=== PATIENT | female | born 1950 | race Caucasian/White ===

== ENCOUNTER → 2023-09-28 11:02 | Outpatient (REF) | payer MEDICARE, OTHER, SELFPAY ==
[2023-09-28 11:39] LABS: % Basophils 1.7 % (0-2); % Eosinophils 7.9 % (0-6); % Immature Granulocytes 0.3 % (0-0.5); % Lymphocytes 27.7 % (20.5-51.1); % Monocytes 8.5 % (1.7-9.3); % Neutrophils 53.9 % (42.2-75.2); Absolute Basophils 0.1 10^3/uL (0-0.2); Absolute Eosinophils 0.3 10^3/uL (0-0.7); Absolute Monocytes 0.3 10^3/uL (0.1-0.6); Absolute Neutrophils 1.9 10^3/uL (1.4-6.5); Hematocrit 42.3 % (37.0-47.0); Hemoglobin 14.6 g/dL (12.0-16.0); Mean Corp Hgb Conc. 34.5 g/dL (33.0-37.0); Mean Corpuscular Volume 98.6 fL (81.0-99.0); Mean Platelet Volume 9.1 fL (7.4-10.4); Nucleated Red Blood Cells % 0 %; Platelet Count 208 10^3/uL (130-400); Red Blood Cell Count 4.29 10^6/uL (4.20-5.40); Red Cell Dist. Width 12.2 % (11.5-14.5); White Blood Cell Count 3.4 10^3/uL (4.8-10.8)
[2023-09-28 11:44] LABS: INR 1.48; PT 17.7 Sec (11.4-14.6)
[2023-09-28 11:56] LABS: ALT (SGPT) 30 U/L (0-35); AST (SGOT) 44 U/L (14-36); Albumin 4.3 g/dl (3.5-5.0); Alkaline Phosphatase 66 U/L (38-126); Blood Urea Nitrogen 12 mg/dl (7-17); Calcium 9.5 mg/dl (8.4-10.2); Carbon Dioxide 29 mmol/L (22-30); Chloride 103 mmol/L (98-107); Glucose 104 mg/dl (70-99); Potassium 3.9 mmol/L (3.5-5.1); Sodium 138 mmol/L (135-145); Total Bilirubin 1.1 mg/dl (0.2-1.3); Total Protein 7.3 g/dl (6.3-8.2); eGFR > 60.00
== END ==
LOC: SDSPAT 11:02
PROVIDERS: ATTENDING PHYSICIAN Internal Medicine Cardiovascular Disease; FAMILY PHYSICIAN Student in an Organized Health Care Education/Training Program; OTHER PHYSICIAN Internal Medicine Cardiovascular Disease
DX: Z01.818 Encounter for other preprocedural examination (principal); I48.0 Paroxysmal atrial fibrillation
CPT/HCPCS: 36415; 80053; 83735; 85025; 85610; 86850; 86900; 86901; 93005

== ENCOUNTER 2023-10-09 09:03 | Day surgery (SDC) | payer MEDICARE, OTHER, SELFPAY ==
[2023-08-13 13:18] VITALS: BMI 24.4
--- NOTE | 2023-08-14 14:21 | W.PN.UPDATE ---
Update Note
Progress Note Update
Pulmonary nodules noted on CT--faxed to PCP
[2023-09-28 11:08] VITALS: BMI 24.5
[2023-10-09] VITALS (20 sets, daily range): BP systolic 115–148; BP diastolic 57–92; BMI 24.4
[2023-10-09 12:18] LABS: ACT-LR - POC 294 Seconds (116-155)
[2023-10-09 12:40] LABS: ACT-LR - POC 351 Seconds (116-155)
[2023-10-09 13:35] LABS: ACT-LR - POC 374 Seconds (116-155)
[2023-10-09 13:45] LABS: ACT-LR - POC 173 Seconds (116-155)
[2023-10-09 14:36] LABS: ACT-LR - POC > 397 Seconds (116-155)
[2023-10-09 14:36] LABS: ACT-LR - POC > 397 Seconds (116-155)
--- NOTE | 2023-10-09 15:10 | ITS.CL.ABL ---
Aircraft Refueller - Ablation
Ablation
Procedure Report:
Primary Rig Operator: Tal Del Castillo MD
Procedure Date: 10/09/2023
Patient History:
Patient is a pleasant 73-year-old female with past medical history significant for hypertension, hypothyroidism, mild asthma, sleep apnea on CPAP, GERD, hypercholesterolemia, and paroxysmal symptomatic atrial fibrillation.
Indication:
Symptomatic paroxysmal atrial fibrillation
Early recurrence following cardioversion x 2
Arrhythmia Specific History:
Prior Medical Therapies for Rate and Rhythm Control:
[ ] Beta-peter
X Calcium channel-peter
[ ] Amiodarone
[ ] Dronederone
[ ] Sotalol
[ ] Flecainide
[ ] Dofetilide
[ ] Options limited by bradycardia
[ ] Options limited by comorbid renal disease
Prior Procedural Therapies for AF/AFL:
X Cardioversion
[ ] Pulmonary Vein Isolation
[ ] Posterior Wall Isolation
[ ] Additional lines (Specify)
[ ] Surgical Veloz-MAZE or PVI (Specify)
Procedure Performed:
X AF ablation procedure (77782) -- includes LA/CS pacing, trans-septal, 3D mapping, + ICE
[ ] +IV drug (25194)
[ ] +Other Arrhythmia (12971)
[ ] +Other AF Line/ablation (10746)
Risks and expected recovery has been explained in detail. Alternative options have been explored, and in a shared-decision making fashion we have decided that this was the most appropriate procedure.
Method
NPO status confirmed. Grounding pad applied. Defibrillator pads applied. Continuous surface ECG, pulse oximetry, and blood pressure were monitored. Procedure was performed under general anesthesia, with anesthesia services.
Both groins were clipped, prepped with Chloraprep, and draped in sterile fashion. Time out was called. Local anesthesia administered with bupivacaine. The right and left femoral veins were accessed for catheter placement, using ultrasound guidance,
micro-puncture needle/wire, and modified seldinger technique. 3 sheaths were placed. The following catheters were used:
[ ] Tacticath SE (D/F Curve) ablation catheter
X Viewflex 9Fr ICE catheter
X Inquiry decapolar 6Fr diagnostic catheter
[ ] CRD Hex 6Fr
X Arctic Front Advance Cryoballoon (28mm)
X Achieve Advance mapping catheter (15mm)
[ ] Acuson AcuNav 8 Fr ICE catheter
[ ]Other: [ ]
Intracardiac ultrasound (ICE) was carefully advanced into the right atrium to guide sheath placement over a J-wire, catheter placement, guide trans-septal puncture, identify potential complications, identify anatomic structures and ensure proper
contact between ablation catheter and tissue.
Heparin was given prior to trans-septal puncture. Heparin was given to achieve and maintain a target ACT of 300-400 seconds.
Trans-septal access was performed under ICE guidance. The trans-septal puncture was performed with a SafeSept wire through a Brockenbrough needle assembly. The wire was visualized as it entered the LSPV. The Brockenbrough needle assembly, SafeSept
wire and sheath dilator were removed under negative pressure. The Protrack pigtail wire was advanced through the sheath into the left atrium with position confirmed on ICE and fluoroscopy. The fixed curve long sheath was exchanged from the steerable
sheath over the Protrack wire and was advanced into the LA and positioned at the mitral annulus.
ICE and 3D mapping was performed to identify relevant cardiac structures. A careful 3D map was created to assess for regions of low-voltage and abnormal electrogram signals. Additional mapping was performed as outlined below. See synopsis for
details.
Cryoballoon ablation was performed using freeze/thaw/freeze at 2-4 minute intervals. Ablation targets included Cryoballoon temperatures of -30 degrees @ 30 seconds with goal temp typically between -40 and -50 degrees Celsius with time to effect when
measurable recorded to guide duration of application and need for repeat ablation in each vein. Esophageal temperature monitored throughout intervention. Phrenic nerve pacing performed during cryoapplication in the right pulmonary veins to monitor
for any evidence of PNI requiring application termination. See synopsis and procedure log for details.
Catheter and sheath were removed from the left atrium and post-ablation intracardiac echo evaluation was consistent with pre-ablation with no changes and no pericardial effusion and there is no left atrial thrombus or left ventricle thrombus seen.
Electrophysiology study was performed. Hemostasis was obtained with Vascade (left groin) and manual pressure (right groin and left-post Vascade). Protamine was used for reversal.
Estimated Blood Loss
5-10 mL
Complications
None
Procedure Synopsis:
The patient entered the room in sinus rhythm. Three-dimensional mapping with EnSite system was performed with reconstruction of left atrium utilizing Achieve catheter. Intracardiac ultrasound and EnSite was used for guidance of ablation and
placement of the Cryoballoon. PV seal was confirmed with pressure waveform and ICE. Using the Achieve catheter, it was confirmed that pulmonary veins were active. All pulmonary veins were isolated successfully using Cryoballoon ablation using
freeze/thaw/freeze cycles at 2-4-minute intervals, with good [id number] of isolation. During the right-sided PV ablation, phrenic nerve pacing was performed to assess the phrenic nerve strength and the phrenic nerve was intact throughout the
right-sided ablation. Pre- and post-pulmonary vein recording and pacing from the Achieve catheter was utilized to ensure complete pulmonary vein isolation. LA voltage map created at procedure conclusion confirming WACA of bilateral PVs.
Fluoroscopy: 9 minutes; DAP 2.39
Contrast used: 0 cc
Baseline Intervals:
Rhythm: SR
TN: 170 ms
QRS: 101 ms
QT: 452 ms
QTc: 397 ms
A-A: 1284 ms
R-R: 1284 ms
Post-Procedure Intervals:
TN: 157 ms
QRS: 86 ms
QT: 372 ms
QTc: 457 ms
A-A: 663 ms
R-R: 663 ms
AVWB: 370 ms
AVERP: 600/350 ms
Recommendations
- Bedrest with straight-leg precautions as ordered
- Admit with anticipate discharge home tomorrow after overnight observation
- Resume home medications as indicated
- Ok to resume anticoagulation tonight if patient and groin sites stable
- PPI daily for 30 days
- Plan for follow-up in office in 4-6 weeks
Kaden Torres,
Clinical Cardiac Ice Cutter
cc: Tal Del Castillo MD
[2023-10-09] MEDS: TYLENOL 650 MG PO (16:10)
--- NOTE | 2023-10-09 16:19 | CM ---
CM following for DC planning needs.
Met w/ patient, dtr. at bedside to complete initial assessment.
Pt. resides in a private 2 story home alone. She is functionally indep. w/ ADLs, mobility without the use of any assisted device. Pt. has CPAP machine at home, which she uses regularly.
Patient has Rx plan and uses [facility] in [place] for RX needs.
Anticipated DC plan is for home, no needs.
[2023-10-09] MEDS: COZAAR 25 MG PO (17:31)
[2023-10-09] MEDS: ROBITUSSIN DM 5 ML PO (18:29)
--- NOTE | 2023-10-09 18:35 | PTCARENOTE ---
Pt received from cath recovery area post ablation. Right groin hematoma on arrival to IVU at @15:15, pressed out with 5 minutes manual pressure by solar lab technician RN. At 17:55 pt had been coughing, right groin hematoma present, oozing from puncture wound.
Manual pressure applied for 15 minutes with complete resolution of hematoma, site now ecchymotic. notified and came to see pt, robitussin given to suppress her cough. (pt has been splinting her groin when coughing). Left femoral vein site
with vascade closure device, dressing dry and intact , no sign of bleeding or hematoma. Pt c/o mid back pain and occasional chest heaviness like 'acid reflux', given brina ghazal and tylenol. Telemetry shows sinus rhythm. Plan to maintain bedrest for
another 2 hours and monitor groins closely.
[2023-10-09] MEDS: SINGULAIR 10 MG PO (19:34)
[2023-10-09] MEDS: PRADAXA 150 MG PO (20:55)
--- NOTE | 2023-10-09 22:43 | PTCARENOTE ---
Received pt at handoff. R groin c/d/i. L groin c/d/i. Pt w/ frequent dry non-productive cough. Aware to splint groin while coughing. At 1954, pt with new blood noted on R groin dressing. Minimal blood noted and outlined w/ marker. Upon reassessment,
pt w/ slow ooze. Sandbag placed on R groin.
[2023-10-10] MEDS: ROBITUSSIN DM 5 ML PO ×2 (00:42→08:43)
--- NOTE | 2023-10-10 00:45 | PTCARENOTE ---
Pt OOB w/ RN assist. No bleeding noted on b/l groins.
[2023-10-10 03:57] VITALS: BP 105/69
[2023-10-10 04:35] LABS: Hematocrit 35.6 % (37.0-47.0); Hemoglobin 12.6 g/dL (12.0-16.0); Mean Corp Hgb Conc. 35.4 g/dL (33.0-37.0); Mean Corpuscular Hgb 33.8 pg (27.0-31.0); Mean Corpuscular Volume 95.4 fL (81.0-99.0); Mean Platelet Volume 9.2 fL (7.4-10.4); Platelet Count 166 10^3/uL (130-400); Red Blood Cell Count 3.73 10^6/uL (4.20-5.40); White Blood Cell Count 6.2 10^3/uL (4.8-10.8)
[2023-10-10 05:00] LABS: Blood Urea Nitrogen 10 mg/dl (7-17); Calcium 8.7 mg/dl (8.4-10.2); Carbon Dioxide 25 mmol/L (22-30); Chloride 106 mmol/L (98-107); Estimated Creatinine Clearance 79 ml/min; Glucose 131 mg/dl (70-99); Potassium 4.4 mmol/L (3.5-5.1); Sodium 134 mmol/L (135-145); eGFR > 60.00
[2023-10-10] MEDS: SYNTHROID 50 MCG PO (05:55)
--- NOTE | 2023-10-10 06:04 | PTCARENOTE ---
No further ooze noted on R groin. New dressing placed. R groin ecchymotic and dressing c/d/i. L groin dressing c/d/i.
--- NOTE | 2023-10-10 07:30 | W.PN.CARDCBS ---
Addendum entered and electronically signed by Arcadio Amador DO 10/10/23 09:48:
I saw and examined the patient.
The [employer] Setting Machine Operator's note was reviewed and I agree with the note.
Comment:
Plan:
Reviewed PVI with pt
Remains in sinus
Cont Cardizem and Pradaxa
groin was stable.
Stable for d/c
Original Note:
Today's Communication / Plan
-
Cont Cardizem CD and Pradaxa
Right groin soft
D/C to home
Impression / Plan
-
PCP: Dr. Jack
Cardiology: Dr. Del Castillo
EP: Dr. Torres
Impression:
Paroxysmal Afib
s/p PVI 10/10/23
Chronic Pradaxa OAC
Right groin ecchymosis without hematoma
HTN
Hypothyroid
COPD with chronic cough
BALAJI on CPAP
GERD
Hyperlipidemia
Echo 02/02/23: EF 55-60%, mild TR
Plan:
-Patient had PVI 10/09/23 and has remained in SR since then. Cont usual dose of Cardizem CD 120 mg daily
-Cont outpatient dose of Pradaxa 150 mg BID. Patient says that she has a new Rx plan for the 2023 plan year and that she has Tier 3 coverage for Eliquis so she will switch once she exhausts her Pradaxa supplies
-Right groin is ecchymotic. Nursing notes reviewed that patient with coughing throughout the night which patient states is chronic and due to COPD. Right groin is nontender and soft. Hgb is stable. No bruit.
-Patient with a h/o HTN. Cont usual doses of HCTZ 12.5 mg daily, losartan 25 mg daily and Cardizem CD 120 mg daily.
-D/C to home 10/10/23, f/u arranged
Progress Note - Full Stack Software Engineer
Subjective
Date of Service: October 10, 2023
Right groin without pain this morning
Objective
Labs:
10/10/23 04:05
10/10/23 04:05
Labs
Hgb 12.6 g/dL (12.0-16.0) 10/10/23 04:05
Hct 35.6 % (37.0-47.0) L 10/10/23 04:05
Plt Count 166 10^3/uL (130-400) 10/10/23 04:05
Sodium 134 mmol/L (135-145) L 10/10/23 04:05
Potassium 4.4 mmol/L (3.5-5.1) 10/10/23 04:05
BUN 10 mg/dl (7-17) 10/10/23 04:05
Creatinine 0.5 mg/dL (0.6-1.0) L 10/10/23 04:05
Glucose 131 mg/dl (70-99) H 10/10/23 04:05
Vital Signs and I&O:
Vital Signs
Temp Pulse Resp BP Pulse Ox
97.8 F 84 16 105/69 94
10/10/23 03:57 10/10/23 04:15 10/10/23 03:57 10/10/23 03:57 10/10/23 03:57
Vital Signs
Temp Pulse Resp BP Pulse Ox
97.8 F 84 16 105/69 94
10/10/23 03:57 10/10/23 04:15 10/10/23 03:57 10/10/23 03:57 10/10/23 03:57
Intake & Output
10/08/23 10/09/23 10/10/23 10/11/23
06:59 06:59 06:59 06:59
Intake Total 480 / 480
Output Total 300 / 300
Balance 180 / 180
Physical Exam
Physical Exam
GEN: NAD, AAOx3
HEENT: EOMI, MMM
LUNGS: CTA B/L
CV: Reg, S1/S2, no murmur
ABD: soft, BS+, NT/ND
EXT: No edema B/L LE
NEURO: Gross non-focal
SKIN: No rash
--- NOTE | 2023-10-10 07:54 | W.DS.TRANS ---
DC Summary - Geographical Historian
-
Discharge Instructions:
Discharge Diagnosis/Procedures Afib post ablation
Diet Low Cholesterol
Activity Other activity
Driving Restrictions No driving for 24 hours
Bathing Restrictions OK to Shower
Instructions:
Stand-Alone Forms: DC Instructions- Cath/EP Lab
Changes to Home Medications: Yes
Discharge Medications:
DC Medications w/original date entered in [facility]
albuterol sulfate 90 mcg/actuation aerosol inhaler (Ventolin HFA) 2 puff inhalation R [id number] PRN sob 01/18/23
azelastine 205.5 mcg (0.15 %) nasal spray 2 spray intranasal PRN PRN sinus congestion 01/18/23
cetirizine 10 mg tablet (Zyrtec) 10 mg PO DAILY 01/18/23
diltiazem HCl 120 mg capsule,extended release 24 hr (Cardizem CD) 120 mg PO DAILY #30 caps 01/18/23
hydrochlorothiazide 12.5 mg capsule 12.5 mg PO DAILY 01/18/23
losartan 25 mg tablet 25 mg PO DAILY 01/18/23
magnesium 250 mg tablet 250 mg PO QPM 01/18/23
montelukast 10 mg tablet 10 mg PO QPM 01/18/23
tuzoeabnedis-eirhzlfe-itvpez tablet (Multivitamin 50 Plus tablet) 1 tab PO DAILY 01/18/23
dabigatran etexilate 150 mg capsule 150 mg PO BID 05/26/23
guaifenesin 600 mg tablet, extended release 12 hr 600 mg PO DAILYPRN PRN congestion 05/26/23
guar gum 1 packet PO DAILY 05/26/23
levothyroxine 50 mcg tablet 50 mcg PO DAILY 05/26/23
[place] Section-3-Vit D3 1,280 mg PO DAILY 08/04/23
calcium carbonate 600 mg-vitamin D3 20 mcg (800 unit) chewable tablet (Caltrate 600 plus D) 1 tab PO DAILY 08/04/23
fluticasone propionate 110 mcg/actuation HFA aerosol inhaler 2 puff inhalation BID 08/04/23
tiotropium bromide 2.5 mcg/actuation mist for inhalation (Spiriva Respimat) 2 puff inhalation DAILY 08/04/23
pantoprazole 40 mg tablet,delayed release 40 mg PO DAILY #30 tabs 10/09/23
Home Medication Changes
New to Protonix
Pending Results: No
--- NOTE | 2023-10-10 08:00 | PTCARENOTE ---
Received pt from previous RN. Walking rounds completed. R groin c/d/i. R ecchymotic but no bleeding and area is soft. L groin c/d/i. NSR. VSS. 94% RA. independent in care. Pt w/ frequent dry non-productive cough. Robitussin requested and given to
patient per orders. encouraged her to splint groin while coughing. plan for d/c this afternoon.
[2023-10-10] MEDS: ORETIC 12.5 MG PO (08:33)
[2023-10-10] MEDS: PRADAXA 150 MG PO (08:33)
[2023-10-10] MEDS: PROTONIX 40 MG PO (08:33)
[2023-10-10] MEDS: COZAAR 25 MG PO (08:35)
[2023-10-10] MEDS: SPIRIVA RESPIMAT 2.5 MCG 2 PUFF INH (08:41)
[2023-10-10] MEDS: CARDIZEM CD 120 MG PO (08:43)
[2023-10-12 19:41] LABS: Hepatitis C Antibody Negative (Negative)
== END 2023-10-10 11:43 | disposition home or self-care (01) ==
LOC: CATH 09:03
PROVIDERS: Nurse Practitioner Adult Health; ATTENDING PHYSICIAN Internal Medicine Cardiovascular Disease; FAMILY PHYSICIAN Student in an Organized Health Care Education/Training Program; OTHER PHYSICIAN Internal Medicine Cardiovascular Disease
DX: I48.0 Paroxysmal atrial fibrillation (principal); E78.00 Pure hypercholesterolemia, unspecified; K21.9 Gastro-esophageal reflux disease without esophagitis; G47.33 Obstructive sleep apnea (adult) (pediatric); E03.9 Hypothyroidism, unspecified; I10 Essential (primary) hypertension
CPT/HCPCS: C1766; C1894; C1730; C1733; C1892; C1759; 76937; 80048; 83735; 85027; 85347; 86803; 93005; 93656; 94640; C1760

== ENCOUNTER → 2024-01-07 08:04 | Outpatient (REF) | payer MEDICARE, OTHER, SELFPAY | LOC: HWRAD 08:04 | PROVIDERS: ATTENDING PHYSICIAN Student in an Organized Health Care Education/Training Program | DX: M79.645 Pain in left finger(s) (principal); M79.644 Pain in right finger(s) | CPT/HCPCS: 73130 ==

== ENCOUNTER → 2024-04-20 13:58 | Outpatient (REF) | payer MEDICARE, OTHER, SELFPAY | LOC: WDC 13:58 | PROVIDERS: ATTENDING PHYSICIAN Student in an Organized Health Care Education/Training Program | DX: Z12.31 Encounter for screening mammogram for malignant neoplasm of breast (principal) | CPT/HCPCS: 77063; 77067 ==

== ENCOUNTER → 2025-01-23 10:11 | Outpatient (REF) | payer MEDICARE, OTHER, SELFPAY | LOC: HWRAD 10:11 | PROVIDERS: ATTENDING PHYSICIAN Otolaryngology; FAMILY PHYSICIAN Student in an Organized Health Care Education/Training Program; REFERRING PHYSICIAN Internal Medicine Critical Care Medicine | DX: J32.0 Chronic maxillary sinusitis (principal); J47.9 Bronchiectasis, uncomplicated; J45.30 Mild persistent asthma, uncomplicated; R06.02 Shortness of breath | CPT/HCPCS: 70486; 71046 ==

== ENCOUNTER → 2025-03-01 08:46 | Outpatient (REF) | payer MEDICARE, OTHER, SELFPAY | LOC: HWRAD 08:46 | PROVIDERS: ATTENDING PHYSICIAN Internal Medicine Critical Care Medicine; FAMILY PHYSICIAN Student in an Organized Health Care Education/Training Program | DX: R91.1 Solitary pulmonary nodule (principal) | CPT/HCPCS: 71250 ==

== ENCOUNTER → 2025-04-25 12:16 | Outpatient (REF) | payer MEDICARE, OTHER, SELFPAY | LOC: SDSPAT 12:16 | PROVIDERS: ATTENDING PHYSICIAN Otolaryngology; FAMILY PHYSICIAN Student in an Organized Health Care Education/Training Program | DX: J32.0 Chronic maxillary sinusitis (principal); J34.3 Hypertrophy of nasal turbinates; J30.0 Vasomotor rhinitis; Z01.818 Encounter for other preprocedural examination | CPT/HCPCS: 36415; 93005 ==

== ENCOUNTER 2025-05-10 06:30 | Day surgery (SDC) | payer MEDICARE, OTHER, SELFPAY ==
[2025-04-25 14:00] VITALS: BMI 23.7
[2025-05-10] VITALS (7 sets, daily range): BP systolic 132–158; BP diastolic 66–123; BMI 23.7
[2025-05-10] MEDS: TYLENOL 1000 MG PO (09:47)
[2025-05-10] MEDS: NORMOSOL-R/PLASMALYTE-A 1000 IV (09:53)
== END 2025-05-10 15:47 | disposition home or self-care (01) ==
LOC: SDS 06:30
PROVIDERS: ATTENDING PHYSICIAN Otolaryngology; FAMILY PHYSICIAN Student in an Organized Health Care Education/Training Program
DX: J34.3 Hypertrophy of nasal turbinates (principal); J34.2 Deviated nasal septum; J32.9 Chronic sinusitis, unspecified
CPT/HCPCS: 31254; 87070; 87075; 87205; 88304; 88311

== ENCOUNTER → 2025-05-23 14:36 | Outpatient (REF) | payer MEDICARE, OTHER, SELFPAY | LOC: WDC 14:36 | PROVIDERS: ATTENDING PHYSICIAN Student in an Organized Health Care Education/Training Program | DX: M81.0 Age-related osteoporosis without current pathological fracture (principal); Z12.31 Encounter for screening mammogram for malignant neoplasm of breast | CPT/HCPCS: 77063; 77067; 77080 ==